=== PATIENT | male | born 1950 | race Caucasian/White ===

== ENCOUNTER 2017-06-02 11:26 | Emergency (ER) | payer OTHER ==
[2017-06-02 11:38] VITALS: PULSE 78
--- NOTE | 2017-06-02 12:24 | EDPHY ---
General Narrative: CHIEF COMPLAINT: Right elbow swelling and pain HISTORY OF PRESENT ILLNESS: Patient complains of 1 day history of right elbow swelling. He says he was shaving this morning when he noted a large area of swelling to the right elbow. It is moderately painful. He 1st started feeling some discomfort in the elbow on Tuesday but was minimal, 06/15. He does not recall bumping or striking the elbow. He has no difficulty bending, straightening or rotating the elbow. It is mildly painful when he does so. No fever or chills. No drainage. No warmth. No other associated complaints or modifying factors. REVIEW OF SYSTEMS: Ten systems reviewed and are negative unless otherwise noted in the HPI PCP: Dr. John SPECIALISTS: [employer] PAST MEDICAL HISTORY: Hypertension, dyslipidemia PAST SURGICAL HISTORY: None SOCIAL HISTORY: Nonsmoker. Occasional alcohol. No drug use. Lives and works in [place] FAMILY HISTORY: Noncontributory EXAMINATION General Appearance: Alert, no distress Head: normocephalic, atraumatic Eyes: Pupils equal and round, no conjunctival pallor or injection ENT, Mouth: Mucous membranes moist Neck: Normal inspection, supple, non-tender Respiratory: No retractions or distress. Cardiovascular: Regular rate. Symmetric radial pulses 2+. Brisk cap refill in all fingers of the right hand Neurological: GCS 15. A&O, nonfocal, normal gait. Strength of the upper extremities is symmetric. Interossei strength symmetric. Skin: Warm and dry, no rash. Minimal erythema overlying the right olecranon bursa. No crepitus. No subcutaneous emphysema. No fluctuance. Extremities: Tenderness over the olecranon bursa swelling. Range of motion of the right upper extremity is fully intact and symmetric to the left. No warmth to the right elbow joint. Neurovascular intact distal to the swelling Psychiatric: Mood and affect normal DIFFERENTIAL DIAGNOSES: Including but not limited to bursitis, infected bursitis, septic joint, fracture , sprain, strain MDM: 12:20 p.m. Right olecranon bursitis with low clinical suspicion of infection. I do not feel that the patient has a septic joint as he has full range of motion without hesitation, both passive and active. He has normal vital signs with no warmth to the joint. He does have an apparent bursitis. I have ordered an x-ray for the possibility of occult injury. I will discuss with Dr. John. 12:40 p.m. Patient evaluated by Dr. John. He recommends that we do aspirate the bursa sac for fluid analysis and then empiric coverage. Patient has agreed to proceed with this plan. 1:15 p.m. I performed aspiration of the right bursa sac without complication. Tolerated well. Serosanguineous appearance has been sent for fluid analysis. X-ray as read by me without the aid of the radiologist reveals no air in the joint or obvious fracture. Official interpretation pending. 1:20 p.m. X-ray has been read by radiologist as olecranon bursitis without other acute findings. 2:20 p.m. Patient re-evaluated. His fluid analysis is still pending but he is asking to be discharged home. He says he is feeling much better for the drainage wants to go home. We discussed that I do not have the full information available at this time, but he says that he has become and seen would like to be discharged home. I do feel he is stable for discharge home with this likely will not change his disposition, but that I would have to contact him by phone if anything abnormal shows up. He is comfortable with this plan and would still like to be discharged home. I provided the on-call orthopedic follow-up. I have discussed pain medication, antibiotics and [id number] anti- inflammatories. We discussed ED precautions as well. He is comfortable with this plan and discharged home stable condition. 3:50 p.m. I have reviewed the synovial fluid analysis. There is significant WBC. I suspect this is due to traumatic tap. Patient was placed on Augmentin and a culture is pending. PROCEDURE: Fluid Aspiration Location: Right olecranon bursa Indication: Bursitis, evaluate for infection Consent: Verbal Anesthesia: Local injection, 1% lidocaine plain. 3 mL Description: Right elbow was prepped, sterile fashion with Betadine. After local injection, the right olecranon bursa was aspirated with sterile syringe and sterile 18 gauge needle. There was moderate bleeding at the aspiration site , I would consider this a traumatic tap. There was approximately 8 cc of serosanguineous fluid collected without difficulty. There was significant improvement the patient's pain after draining the fluid. There was no pulsatile bleeding. No difficulty. Tolerated well without complication. Fluid sent for analysis. SUPERVISION: Patient was evaluated and examined in conjunction with my secondary supervising physician as documented. We have both examined the patient. - Diagnostics Imaging Results: Imaging Impressions Elbow X-Ray 06/02/17 12:24 Impression: Olecranon bursitis. - History Smoking Status: Never smoked - Objective Vital Signs: Initial Vital Signs Temperature (C) 97.5 F 06/02/17 11:30 Heart Rate 78 06/02/17 11:30 Respiratory Rate 18 06/02/17 11:30 Blood Pressure 124/77 H 06/02/17 11:30 O2 Sat (%) 98 06/02/17 11:30 O2 Delivery Mode Room Air Allergies/Adverse Reactions: No Known Allergies Allergy (Verified 06/02/17 11:35) Home Medications: Medication Instructions Recorded Lisinopril [Zestril 5 mg (RX)] 5 mg PO DAILY 08/05/14 Rosuvastatin Calcium [Crestor 20mg 20 mg PO DAILY 08/05/14 (RX)] Amoxicillin/Clavulanate Pot 875 mg PO BID #20 tab 06/02/17 [Augmentin 875 MG TAB (*)] oxyCODONE HCL/ACETAMINOPHEN 1 each PO Q4-6PRN PRN #7 tablet 06/02/17 [Percocet 5-325 mg Tablet] Laboratory Results: 06/02/17 13:45 Fl Pathologist Review Pending Synovial Source SYNOVIAL Synovial Color RED (CLS/PALE YL) Synovial Appearance CLOUDY H (CLEAR) Synovial WBC 4206 /mm3 H /mm3 (0-150) Synovial RBC 817474 /mm3 H /mm3 (0-0) Synovial Neutrophils 88 % H % (0-25) Synovial Lymphocytes 4 % % Synov Monos/Macrophage 8 % % Synovial Crystals Pending Synovial Glucose Pending Departure - Departure Disposition: Home, Routine, Self-Care Clinical Impression: Olecranon bursitis of right elbow Condition: Good Instructions: Elbow Bursitis (ED) Additional Instructions: 1. Augmentin as prescribed to completion 2. Recommend ibuprofen 600 mg [id number] every 8 hr as needed for pain 3. Pain medication as prescribed as needed 4. Contact the on-call orthopedist as provided for outpatient care 5. ED precautions as discussed Referrals: URSZULA JOHN [Other] - As per Instructions Prescriptions: Amoxicillin/Clavulanate Pot [Augmentin 875 MG TAB (*)] 875 mg PO BID #20 tab oxyCODONE HCL/ACETAMINOPHEN [Percocet 5-325 mg Tablet] 1 each PO Q4-6PRN PRN #7 tablet PRN Reason: Pain, Breakthrough
[2017-06-02 14:32] VITALS: BP 131/91; RESP 20; TEMP 98.1; O2SAT 97
== END 2017-06-02 14:32 | disposition home or self-care (01) ==
PROC: 0M933ZZ Drainage of Right Elbow Bursa and Ligament, Percutaneous Approach (ICD-10-PCS; principal; 2017-06-02)
DX: M70.21 Olecranon bursitis, right elbow (principal); I10 Essential (primary) hypertension